=== PATIENT | female | born 1935 | race Caucasian/White ===

== ENCOUNTER 2017-08-30 15:07 | Emergency (ER) | payer MEDICARE, BC ==
[~2017-08-30] VITALS: Ht 160 cm; Wt 56.7 kg
[~2017-08-30 15:07] MED LIST: ASPIR-LOW81 MG PO; BUFFERIN PO; CALCIUM + D 6001 TA1 PO; CARAFATE1 G1 PO; CENTRUM SILVER1 TA1 PO; COLACE100 MG PO; K-DUR 1010 MEQ PO; LOPRESSOR50 MG PO; Lopressor25 MG PO; MELOXICAM15 MG PO; MOBIC7.5 MG PO; NORVASC5 MG PO; OMEGA 31000 MG PO; PRESERVISION AR1 SGL PO; PROTONIX40 MG PO; SYNTHROID,LEV100 MCG PO
== END 2017-08-30 16:50 | disposition expired ==
LOC: ED 15:07
DX: I46.9 Cardiac arrest, cause unspecified (principal); Z79.899 Other long term (current) drug therapy; Z90.710 Acquired absence of both cervix and uterus; Z90.49 Acquired absence of other specified parts of digestive tract; Z98.890 Other specified postprocedural states